=== PATIENT | female | born 1985 | race Caucasian/White ===

== ENCOUNTER 2019-11-10 20:13 | Emergency (ER) | payer OTHER ==
[~2019-11-10] VITALS: Ht 167.6 cm; Wt 63.5 kg
[2019-11-10 20:14] VITALS: BP 114/78
--- NOTE | 2019-11-10 20:14 | NUR ---
ED Nurse Note: PT walked in to ED for C/O flu like S/Sx x 1 week. pt reports having fever but at triage is 99.3. Pt reports having cough, and fatigue. pt denies recent travel.
--- NOTE | 2019-11-10 20:52 | Emergency Room Report ---
History of Present Illness General Chief Complaint: Flu Like Symptoms Present Illness HPI 33-year-old female with no known significant past medical history, stable vital signs, afebrile, no smoking history here with significant other due to exposure to people at the festival in [place] who tested positive for coronavirus. Complains of 3 days of congestion, cough, denying any body aches, sore throat, chest pain, and shortness of breath. Has not taken medication for symptom relief. Denies abdominal pain, nausea vomiting. Has not been return to work since the onset of symptoms. Denies . Denies recent travel. COVID-19 risk:Contact w/high r: No COVID-19 risk:Travel to affect: No Has patient experienced mukherjee: Yes Coronavirus symptoms experienc: Cough, Flu-Like Symptoms Allergies: Coded Allergies: No Known Allergies (Unverified , 11/10/19) Patient History Past Medical History: see triage record Past Surgical History: none Pertinent Family History: none Last Menstrual Period: na Now: No Immunizations: UTD Reviewed Nursing Documentation: PMH: Agreed; PSxH: Agreed Review of Systems All Other Systems: negative except mentioned in HPI Physical Exam Vital Signs Date Time Temp Pulse Resp B/P (MAP) Pulse Ox O2 Delivery O2 Flow Rate FiO2 11/10/19 20:11 99.3 85 16 114/78 (90) 97 Room Air Sp02 EP Interpretation: reviewed, normal General Appearance: no apparent distress, alert, GCS 15, non-toxic Head: normocephalic, atraumatic Eyes: bilateral eye normal inspection, bilateral eye PERRL ENT: hearing grossly normal, normal pharynx, no angioedema, normal voice Neck: full range of motion, supple/symm/no masses Respiratory: chest non-tender, lungs clear, normal breath sounds, no rhonchi, no wheezing, speaking full sentences Cardiovascular #1: regular rate, rhythm, no edema, no murmur Gastrointestinal: normal bowel sounds, non tender, soft, non-distended, no guarding, no rebound Rectal: deferred Genitourinary: no CVA tenderness Musculoskeletal: back normal, normal range of motion, gait/station normal, non- tender Neurologic: alert, motor strength/tone normal, oriented x3, sensory intact, responsive, speech normal Psychiatric: judgement/insight normal, memory normal, mood/affect normal, no suicidal/homicidal ideation Skin: no rash Lymphatic: no adenopathy Medical Decision Making PA Attestation All my diagnosis and treatment plans were reviewed ad discussed with my supervising physician Dr. Desouza Diagnostic Impression: Primary Impression: Exposure to 2019 novel coronavirus ER Course 33-year-old female with no known significant past medical history, stable vital signs, afebrile, no smoking history here with significant other due to exposure to people at the festival in [place] who tested positive for coronavirus. Complains of 3 days of congestion, cough, denying any body aches, sore throat, chest pain, and shortness of breath. Has not taken medication for symptom relief. Denies abdominal pain, nausea vomiting. Has not been return to work since the onset of symptoms. Denies . Denies recent travel. Ddx considered but are not limited to: Coronavirus, strep pharyngitis, URI, tonsillitis, peritonsillar abscess, influneza Vital signs: are WNL, pt. is afebrile H&PE are most consistent with: Exposure to coronavirus ORDERS: Guaifenesin, Tylenol, Claritin ED INTERVENTIONS: None required at this time. DISCHARGE: At this time pt. is stable for d/c to home. Will provide printed patient care instructions, and any necessary prescriptions. Care plan and follow up instructions have been discussed with the patient prior to discharge. Take medication as directed, follow-up with your primary doctor, you need to stay home for self quarantine due to Covid 19 precautions for 14 days Last Vital Signs Date Time Temp Pulse Resp B/P (MAP) Pulse Ox O2 Delivery O2 Flow Rate FiO2 11/10/19 20:14 99.3 85 16 114/78 97 Room Air Disposition: HOME, SELF-CARE Condition: Stable Scripts Acetaminophen* (TYLENOL EXTRA STRENGTH*) 500 Mg Tablet 500 MG ORAL Q8H PRN for Prn Headache/Temp > 101, #30 TAB 0 Refills Prov: Mehreen Medina 11/10/19 Loratadine/Pseudoephedrine (CLARITIN-D 12 HOUR TABLET) 1 Each Tab.er.12h 1 TAB ORAL EVERY 12 HOURS, #20 TAB Prov: Mehreen Medina 11/10/19 Guaifenesin* (GUAIFENESIN*) 100 Mg/5 Ml Liquid 15 ML ORAL Q6H, #120 ML 0 Refills Prov: Mehreen Medina 11/10/19 Patient Instructions: Upper Respiratory Infection, Adult, [id number] Additional Instructions: Take medication as directed, follow-up with your primary doctor, you need to stay home for self quarantine due to Covid 19 precautions for 14 days Mehreen Medina Nov 10, 2019 20:52
[2019-11-10] MEDS ORDERED: GUAIFENESI100 MG/5 M ORAL (20:53)
[2019-11-10] MEDS ORDERED: CLARITIN-D 121 EAC1 ORAL (20:53)
[2019-11-10] MEDS ORDERED: TYLENOL EXTRA500 MG ORAL (20:53)
[2019-11-10 21:06] VITALS: BP 110/80
--- NOTE | 2019-11-10 21:06 | NUR ---
ER DISCHARGE NOTE: Patient is cleared to be discharged per ERMD, pt is aox4, on room air, with stable vital signs. pt was given dc and prescription instructions, pt was able to verbalize understanding, pt id band removed without complications. pt is able to ambulate with steady gait. pt took all belongings.
== END 2019-11-10 21:10 | disposition home or self-care (01) ==
LOC: EDBD 20:13 → EMR 20:24
DX: R05 Cough (principal); Z20.828 Contact with and (suspected) exposure to other viral communicable diseases
CPT/HCPCS: 99282